=== PATIENT | female | born 1970 | race Caucasian/White ===

== ENCOUNTER 2019-08-14 | Emergency (ER) | payer BC ==
--- NOTE | 2019-08-14 15:37 | EDPHYS ---
Physician Documentation [facility] Name: Chely Pedraza Age: 48 yrs Sex: Female : 1970 Arrival Date: 08/14/2019 Time: 14:50 Bed Waiting Private MD: ED Physician Chandrakant Mcneil HPI: 08/14 18:11 This 48 yrs old Female presents to ER via Wheelchair with complaints of Foot snw Pain, Ankle Injury. 18:11 The patient presents with decreased range of motion, pain, swelling, tenderness. The snw complaints affect the anterior aspect of left ankle and dorsum of left foot. Context: The problem was sustained at an unknown site, resulted from a mis-step, the patient can partially bear weight, Problem is a result from a previous injury: injury occurred apparently over a year ago, pt recently began working and pain became worse. Onset: The symptoms/episode began/occurred suddenly, 1 year(s) ago, and became persistent. Associated signs and symptoms: The patient has no apparent associated signs or symptoms. Severity of symptoms: At their worst the symptoms were moderate. It is unknown whether or not the patient has had similar symptoms in the past. The patient has not recently seen a physician. 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 - Social history:: Smoking status: Patient reports the use of cigarette tobacco products, denies chronic smoking, but will smoke occasionally. - Ebola Screening: : Patient denies travel to an Ebola-affected area in the 21 days before illness onset. ROS: 18:13 Constitutional: Negative for fever, chills, and weight loss, Eyes: Negative for injury, snw pain, redness, and discharge, ENT: Negative for injury, pain, and discharge, Neck: Negative for injury, pain, and swelling, Cardiovascular: Negative for chest pain, palpitations, and edema, Respiratory: Negative for shortness of breath, cough, wheezing, and pleuritic chest pain, Abdomen/GI: Negative for abdominal pain, nausea, vomiting, diarrhea, and constipation, Back: Negative for injury and pain, : Negative for injury, bleeding, discharge, and swelling, Skin: Negative for injury, rash, and discoloration, Neuro: Negative for headache, weakness, numbness, tingling, and seizure, Psych: Negative for depression, anxiety, suicide ideation, homicidal ideation, and hallucinations. 18:13 MS/extremity: Positive for injury or acute deformity, decreased range of motion, pain, of the left Achilles and anterior aspect of left ankle. Exam: 17:32 Constitutional: This is a well developed, well nourished patient who is awake, alert, snw and in no acute distress. Head/Face: Normocephalic, atraumatic. Eyes: Pupils equal round and reactive to light, extra-ocular motions intact. Lids and lashes normal. Conjunctiva and sclera are non-icteric and not injected. Cornea within normal limits. Periorbital areas with no swelling, redness, or edema. Neck: Trachea midline, no thyromegaly or masses palpated, and no cervical lymphadenopathy. Supple, full range of motion without nuchal rigidity, or vertebral point tenderness. No Meningismus. Chest/axilla: Normal chest wall appearance and motion. Nontender with no deformity. No lesions are appreciated. Cardiovascular: Regular rate and rhythm with a normal S1 and S2. No gallops, murmurs, or rubs. Normal PMI, no JVD. No pulse deficits. Respiratory: Lungs have equal breath sounds bilaterally, clear to auscultation and percussion. No rales, rhonchi or wheezes noted. No increased work of breathing, no retractions or nasal flaring. Abdomen/GI: Soft, non-tender, with normal bowel sounds. No distension or tympany. No guarding or rebound. No evidence of tenderness throughout. Back: No spinal tenderness. No costovertebral tenderness. Full range of motion. Skin: Warm, dry with normal turgor. Normal color with no rashes, no lesions, and no evidence of cellulitis. Neuro: Awake and alert, GCS 15, oriented to person, place, time, and situation. Cranial nerves II-XII grossly intact. Motor strength 5/5 in all extremities. Sensory grossly intact. Cerebellar exam normal. Normal gait. Psych: Awake, alert, with orientation to person, place and time. Behavior, mood, and affect are within normal limits. 17:32 Musculoskeletal/extremity: Extremities: grossly normal except: noted in the left Achilles and left ankle: decreased ROM, swelling, Circulation is intact in all extremities. Sensation intact. Compartment Syndrome exam of affected extremity: is normal. Vital Signs: 15:04 BP 104 / 64; Pulse 98; Resp 18; Temp 99.4; Pulse Ox 99% on R/A; Weight 113.85 kg (R); aj1 Height 6 ft. 2 in. (187.96 cm) (R); Pain 10/10; 15:04 Body Mass Index 32.23 (113.85 kg, 187.96 cm) aj1 MDM: 15:12 Patient medically screened. snw 17:32 Data reviewed: vital signs, nurses notes. Data interpreted: Pulse oximetry: on room air snw is 99 %. Interpretation: normal. Counseling: I had a detailed discussion with the patient and/or guardian regarding: the historical points, exam findings, and any diagnostic results supporting the discharge/admit diagnosis, the need for outpatient follow up, to return to the emergency department if symptoms worsen or persist or if there are any questions or concerns that arise at home. 08/14 15:07 Order name: Walking boot; Complete Time: 15:12 aj Administered Medications: No medications were administered Disposition: 17:53 Co-signature as Attending Physician, Chandrakant Mcneil MD. rn Disposition: 08/14/19 15:36 Discharged to Home. Impression: Pain in left ankle and joints of left foot. - Condition is Stable. - Discharge Instructions: Achilles Tendinitis, Steps to Quit Smoking, Smoking Hazards, Ankle Pain, Achilles Tendon Repair, Achilles Tendon Repair, Care After. - Prescriptions for Mobic 7.5 mg Oral Tablet - take 1 tablet by ORAL route once daily take with food; 20 tablet. - Work release form, Medication Reconciliation Form, Thank You Letter, Antibiotic Education, Prescription Opioid Use form. - Follow up: Emergency Department; When: As needed; Reason: Worsening of condition. Follow up: Private Physician; When: 2 - 3 days; Reason: Recheck today's complaints, Continuance of care, Re-evaluation by your physician. Signatures: Maryse Franco RN RN aj1 Mechelle Brambila, DIRECTOR CHANNEL-C DIRECTOR CHANNEL-Csnw Chandrakant Mcneil MD MD intake rn: (The following items were deleted from the chart) 15:52 15:36 08/14/2019 15:36 Discharged to Home. Impression: Pain in left ankle and joints of aj1 left foot. Condition is Stable. Discharge Instructions: Achilles Tendinitis, Steps to Quit Smoking, Smoking Hazards, Ankle Pain, Achilles Tendon Repair, Achilles Tendon Repair, Care After. Prescriptions for Mobic 7.5 mg Oral Tablet - take 1 tablet by ORAL route once daily take with food; 20 tablet. and Forms are Work release form, Medication Reconciliation Form, Thank You Letter, Antibiotic Education, Prescription Opioid Use. Follow up: Emergency Department; When: As needed; Reason: Worsening of condition. Follow up: Private Physician; When: 2 - 3 days; Reason: Recheck today's complaints, Continuance of care, Re-evaluation by your physician. snw
--- NOTE | 2019-08-14 15:37 | ER ---
Nurse's Notes [facility] Name: Chely Pedraza Age: 48 yrs Sex: Female : 1970 Arrival Date: 08/14/2019 Time: 14:50 Bed Waiting Private MD: Diagnosis: Pain in left ankle and joints of left foot Presentation: 08/14 14:57 Presenting complaint: Patient states: "I went to the doctor yesterday and he has been aj1 giving me Kenalog shots in my achilles saying that its probably tendonitis. I was helping him and he leaned on me too hard and I twisted my ankle last September. Its been hurting since then" Patient states that she had a Kenalog shot yesterday but it didn't help. Transition of care: patient was not received from another setting of care. Onset of symptoms was July 2019. Risk Assessment: Do you want to hurt yourself or someone else? Patient reports no desire to harm self or others. Initial Sepsis Screen: Does the patient meet any 2 criteria? HR > 90 bpm. No. Patient's initial sepsis screen is negative. Does the patient have a suspected source of infection? No. Patient's initial sepsis screen is negative. Care prior to arrival: None. 14:57 Method Of Arrival: Wheelchair aj 14:57 Acuity: TOÑO 4 aj1 Triage Assessment: 15:04 General: Appears in no apparent distress. comfortable, Behavior is calm, cooperative, aj1 appropriate for age. Pain: Complains of pain in left Achilles. Neuro: Level of Consciousness is awake, alert, obeys commands, Oriented to person, place, time, situation. Cardiovascular: Patient's skin is warm and dry. Respiratory: Airway is patent Respiratory effort is even, unlabored, Respiratory pattern is regular, symmetrical. Musculoskeletal: Reports pain in left Achilles. 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 - Social history:: Smoking status: Patient reports the use of cigarette tobacco products, denies chronic smoking, but will smoke occasionally. - Ebola Screening: : Patient denies travel to an Ebola-affected area in the 21 days before illness onset. Screenin:27 Abuse screen: Denies threats or abuse. Denies injuries from another. Nutritional aj1 screening: No deficits noted. Tuberculosis screening: No symptoms or risk factors identified. Fall Risk None identified. Assessment: 15:27 Reassessment: see triage note. aj1 Vital Signs: 15:04 BP 104 / 64; Pulse 98; Resp 18; Temp 99.4; Pulse Ox 99% on R/A; Weight 113.85 kg (R); aj1 Height 6 ft. 2 in. (187.96 cm) (R); Pain 10/10; 15:04 Body Mass Index 32.23 (113.85 kg, 187.96 cm) aj1 ED Course: 14:50 Patient arrived in ED. as 15:01 Triage completed. aj1 15:04 Arm band placed on Patient placed in waiting room, Patient notified of wait time. aj1 15:11 Mechelle Brambila FNP-C is [facility]. snw 15:12 Chandrakant Mcneil MD is Attending Physician. snw 15:27 Patient has correct armband on for positive identification. aj1 15:32 No provider procedures requiring assistance completed. Patient did not have IV access aj1 during this emergency room visit. Administered Medications: No medications were administered Outcome: 15:32 Discharged to home ambulatory. aj1 15:32 Condition: good 15:32 Discharge instructions given to patient, Instructed on discharge instructions, follow up and referral plans. medication usage, Demonstrated understanding of instructions, follow-up care, medications, Prescriptions given X 1. 15:36 Discharge ordered by . snw 15:52 Patient left the ED. aj1 Signatures: Maryse Franco, RN RN aj1 Mechelle Brambila FNP-C [employer] OPERATOR-Shruti Merino as
== END 2019-08-14 15:52 | disposition home or self-care (01) ==
CPT/HCPCS: 99282